=== PATIENT | male | born 1960 | race African-American/Black ===

== ENCOUNTER 2017-06-19 04:21 | Emergency (ER) | payer MEDICAID ==
[~2017-06-19] VITALS: Ht 190.5 cm; Wt 90.0 kg
[2017-06-19] MEDS ORDERED: OLANZAPINE 10 MG/VIAL IM ONE (05:45)
[2017-06-19 07:05] LABS: HEMATOCRIT. 45.7 % (42.0-52.0); HEMOGLOBIN. 15.4 g/dL (14.0-18.0); MEAN CORPUSCULAR VOLUME 89.2 fL (80.0-94.0); MEAN PLATELET VOLUME 7.7 fl (7.4-10.4); PLATELET 249 x1000/uL (130-400); RED BLOOD CELL COUNT 5.12 mill/uL (4.7-6.1); RED CELL DISTRIBUTION WIDTH 14.8 % (11.6-14.6)
[2017-06-19 07:10] LABS: CHLORIDE 106 mEq/L (98-107); ETHANOL BLOOD < 10 mg/dL
[2017-06-19 08:24] LABS: PLATELET ESTIMATE NORMAL
[2017-06-19 11:18] VITALS: BP 138/82
[2017-06-19 11:23] LABS: CLARITY URINE CLEAR (CLEAR); COLOR URINE YELLOW (YELLOW); KETONES URINE 1+ (NEGATIVE); LEUKOCYTE ESTERASE URINE NEGATIVE (NEGATIVE); NITRITE URINE NEGATIVE (NEGATIVE); OCCULT BLOOD URINE 3+ (NEGATIVE); PROTEIN URINE 2+ (NEGATIVE); SPECIFIC GRAVITY URINE 1.026 (1.005-1.030); UROBILINOGEN URINE 0.2 E.U./dL (0.2-1.0)
[2017-06-19 12:02] LABS: *AMPHETAMINES SCREEN URINE PRESUMTIVE POSITIVE (NEGATIVE); *BARBITURATES SCREEN URINE NEGATIVE (NEGATIVE); *BENZODIAZEPINES SCREEN URINE NEGATIVE (NEGATIVE); *COCAINE SCREEN URINE PRESUMTIVE POSITIVE (NEGATIVE); CANNABINOID URINE SCREEN NEGATIVE (NEGATIVE); METHADONE URINE SCREEN NEGATIVE (NEGATIVE); OPIATES URINE SCREEN NEGATIVE (NEGATIVE); PHENCYCLIDINE URINE SCREEN NEGATIVE (NEGATIVE)
== END 2017-06-19 11:37 | disposition home or self-care (01) ==
LOC: EDBD 04:21 → ER 04:33
DX: F23 Brief psychotic disorder (principal); N19 Unspecified kidney failure
CPT/HCPCS: 36415; 80053; 80305; 81003; 85025; 96372; 99284; G0482; J3490; Z7610

== ENCOUNTER 2020-06-15 15:26 | Emergency (ER) | payer MEDICAID, OTHER ==
[~2020-06-15] VITALS: Ht 190.5 cm; Wt 86.4 kg
[2020-06-15] MEDS ORDERED: SODIUM CHLORIDE 0.9% 1,000 ML IV ONE (16:15)
[2020-06-15 16:21] LABS: CHLORIDE 104 mEq/L (98-107)
[2020-06-15 16:23] LABS: D-DIMER 0.48 mg/L FEU (<0.50); INR 0.9; PROTHROMBIN TIME 10.2 sec (9.6-11.0)
[2020-06-15 16:25] LABS: ETHANOL BLOOD < 10 mg/dL
[2020-06-15 16:29] LABS: LDL CHOLESTEROL 42 mg/dL (5-100)
[2020-06-15 16:34] LABS: BASOPHILS % 0.7 % (0.0-2.0); EOSINOPHILS % 0.8 % (0.0-5.0); HEMOGLOBIN. 14.7 g/dL (14.0-18.0); MEAN CORPUSCULAR HEMOGLOBIN 30.4 pg (28.0-32.0); MEAN CORPUSCULAR VOLUME 91.1 fL (80.0-94.0); MEAN PLATELET VOLUME 7.8 fl (7.4-10.4); MONOCYTES % 10.8 % (2.0-8.0); NEUTROPHILS % 64.7 % (40.0-76.0); PLATELET 218 x1000/uL (130-400); RED BLOOD CELL COUNT 4.83 mill/uL (4.7-6.1)
[2020-06-15 16:42] LABS: CREATINE KINASE 1764 IU/L (39-308)
[2020-06-15 17:39] LABS: CLARITY URINE CLEAR (CLEAR); COLOR URINE YELLOW (YELLOW); KETONES URINE 1+ (NEGATIVE); LEUKOCYTE ESTERASE URINE NEGATIVE (NEGATIVE); NITRITE URINE NEGATIVE (NEGATIVE); OCCULT BLOOD URINE NEGATIVE (NEGATIVE); PROTEIN URINE NEGATIVE (NEGATIVE); SPECIFIC GRAVITY URINE 1.055 (1.005-1.030)
[2020-06-15 18:24] LABS: *AMPHETAMINES SCREEN URINE PRESUMTIVE POSITIVE (NEGATIVE); *BARBITURATES SCREEN URINE NEGATIVE (NEGATIVE); CANNABINOID URINE SCREEN NEGATIVE (NEGATIVE); PHENCYCLIDINE URINE SCREEN NEGATIVE (NEGATIVE)
[2020-06-15 18:26] LABS: *BENZODIAZEPINES SCREEN URINE NEGATIVE (NEGATIVE); *COCAINE SCREEN URINE PRESUMTIVE POSITIVE (NEGATIVE); METHADONE URINE SCREEN NEGATIVE (NEGATIVE); OPIATES URINE SCREEN NEGATIVE (NEGATIVE)
[2020-06-15] MEDS ORDERED: IOHEXOL-300 100 ML BOTTLE ONE (23:16)
[2020-06-15 23:58] VITALS: BP 149/93
== END 2020-06-16 00:51 | disposition short-term general hospital (02) ==
LOC: ER 15:26 → CANBEDREQ 06-16 01:35
DX: R53.1 Weakness (principal); R41.82 Altered mental status, unspecified; Z86.73 Personal history of transient ischemic attack (TIA), and cerebral infarction without residual deficits; Z98.890 Other specified postprocedural states
CPT/HCPCS: 36415; 70450; 70496; 71045; 80053; 80305; 80320; 81003; 82550; 82962; 83605; 83721; 83880; 84484; 85025; 85379; 85610; 87040; 87086; 93005; 99285; J7030; Q9967; G0480

== ENCOUNTER 2023-09-03 20:45 | Emergency (ER) | payer MEDICAID, OTHER ==
[~2023-09-03] VITALS: Ht 180.3 cm; Wt 79.0 kg
[2023-09-03 20:47] VITALS: TEMP 98.1; O2SAT 99
[2023-09-03] MEDS: SODIUM CHLORIDE 0.9% 1,000 ML IV ONE (22:07)
[2023-09-03 23:33] LABS: BASOPHILS % 0.7 % (0.0-2.0); EOSINOPHILS % 0.7 % (0.0-5.0); HEMATOCRIT. 44.4 % (42.0-52.0); HEMOGLOBIN. 14.9 g/dL (14.0-18.0); LYMPHOCYTES % 35.3 % (20.0-50.0); MEAN CORPUSCULAR HEMOGLOBIN 28.7 pg (28.0-32.0); MEAN CORPUSCULAR HGB CONC 33.5 g/dL (31.0-37.0); MEAN CORPUSCULAR VOLUME 85.7 fL (80.0-94.0); MEAN PLATELET VOLUME 7.6 fl (7.4-10.4); MONOCYTES % 5.8 % (2.0-8.0); NEUTROPHILS % 57.5 % (40.0-76.0); PLATELET 259 x1000/uL (130-400); RED BLOOD CELL COUNT 5.18 mill/uL (4.7-6.1); RED CELL DISTRIBUTION WIDTH 14.6 % (11.6-14.6); WHITE BLOOD COUNT 6.3 x1000/uL (4.5-11.0)
[2023-09-03 23:35] LABS: CHLORIDE 112 mEq/L (98-107); POTASSIUM 4.6 mEq/L (3.5-5.1); SODIUM 146 mEq/L (136-145)
[2023-09-03 23:36] LABS: CALCIUM 9.5 mg/dL (8.7-10.4); CARBON DIOXIDE 28 mEq/L (21-32)
[2023-09-03 23:41] LABS: GLUCOSE 88 mg/dL (70-105); UREA NITROGEN BLOOD 9 mg/dL (9-23)
[2023-09-03 23:42] LABS: ETHANOL BLOOD 284 mg/dL (<10)
[2023-09-04 02:22] VITALS: BP 130/98; PULSE 98; RESP 17
== END 2023-09-04 05:18 | disposition home or self-care (01) ==
LOC: ER 20:45
DX: R41.82 Altered mental status, unspecified (principal); R56.9 Unspecified convulsions; Z86.73 Personal history of transient ischemic attack (TIA), and cerebral infarction without residual deficits
CPT/HCPCS: 80048; 80320; 82962; 85025; 36415; 96360; 99285; 70450; J7030; G0480